=== PATIENT | male | born 1980 | race Caucasian/White ===

== ENCOUNTER 2019-05-30 20:06 | Emergency (ER) | payer SELFPAY ==
[~2019-05-30] VITALS: Ht 182.9 cm; Wt 84.1 kg
[~2019-05-30 20:06] MED LIST: FOLI-17 PO; GABA600T7 PO; MULT-750 PO; NICO-487 TD; THIA100T67 PO; TRAZ50TA66 PO; VENL150C PO; VENL75TA2 PO
--- NOTE | 2019-05-30 20:17 | NUR ---
PT BIB EMS REPORTS PT ETOH INTOXICATED AND "WANTS TO DETOX". STRONG ETOH ODOR. PT STATES "I DRANK A GALLON OF WHISKEY TODAY". PT REPORTS "I URINATE 25 TIMES PER DAY, I HAVE A PROBLEM WITH EATING, MY CHEST HURTS SINCE CHANDU BEEN WITHDRAWING, MY LAST DRINK WAS 9 HOURS AGO". PT CONENCTED TO MONITORING, CALL LIGHT WITHIN REACH.
--- NOTE | 2019-05-30 21:17 | NUR ---
UA REQUESTED AT THIS TIME. PT ATTEMPTING TO URINE.
[2019-05-30 21:19] LABS: BASOPHILS # (AUTO) 0.03 x10^3/uL (0-0.1); BASOPHILS % (AUTO) 1 % (0-1); EOSINOPHILS # (AUTO) 0.04 x10^3/uL (0-0.4); EOSINOPHILS % (AUTO) 1 % (1-7); LYMPHOCYTES # (AUTO) 2.07 x10^3/uL (1-3.4); LYMPHOCYTES % (AUTO) 33 % (22-44); MD NO; MEAN CORPUSCULAR HEMOGLOBIN 30.2 pg (27.5-34.5); MEAN CORPUSCULAR HGB CONC 33.5 g/dL (33.2-36.2); MEAN CORPUSCULAR VOLUME 90.3 fL (81-97); MEAN PLATELET VOLUME 7.7 fL (7.4-10.4); MONOCYTES # (AUTO) 1.04 x10^3/uL (0.2-0.8); MONOCYTES % (AUTO) 17 % (2-9); NEUTROPHILS # (AUTO) 3.04 x10^3/uL (1.8-6.8); NEUTROPHILS % (AUTO) 49 % (42-75); PLATELET COUNT 274 x10^3/uL (130-400); RED BLOOD COUNT 4.46 x10^6/uL (4.38-5.82); RED CELL DISTRIBUTION WIDTH 15.2 % (9.4-14.8)
[2019-05-30 21:23] LABS: ALANINE AMINOTRANSFERASE 27 U/L (12-78); ALBUMIN 3.9 g/dL (3.4-5.0); ANION GAP 7 mmol/L (5-15); CALCIUM 8.1 mg/dL (8.5-10.1); CHLORIDE 109 mmol/L (98-107); CREATININE 0.74 mg/dL (0.7-1.3)
[2019-05-30 21:28] LABS: ALKALINE PHOSPHATASE 88 U/L (45-117); BILIRUBIN,TOTAL 0.5 mg/dL (0.2-1.0); TOTAL PROTEIN 7.2 g/dL (6.4-8.2)
--- NOTE | 2019-05-30 21:46 | NUR ---
PT AMBULATED WITH STEADY GAIT TO BR TO PROVIDE UA.
[2019-05-30 22:08] VITALS: BP 113/77
[2019-05-30 22:11] LABS: AMPHETAMINE SCREEN, URINE Negative (Negative); BARBITURATE SCREEN, URINE Negative (Negative); BENZODIAZEPINE SCREEN, URINE Positive (Negative); CANNABINOID SCREEN, URINE Negative (Negative); COCAINE SCREEN, URINE Negative (Negative); METHADONE SCREEN, URINE Negative (Negative); OPIATE SCREEN, URINE Negative (Negative)
== END 2019-05-30 22:11 | disposition home or self-care (01) ==
LOC: ED 22:09
DX: F10.220 Alcohol dependence with intoxication, uncomplicated (principal)
CPT/HCPCS: 36415; 80053; 80307; 83735; 85025; 99283

== ENCOUNTER 2019-06-28 22:11 | Emergency (ER) | payer SELFPAY ==
[~2019-06-28] VITALS: Ht 182.9 cm; Wt 86.0 kg
--- NOTE | 2019-06-28 22:24 | NUR ---
THIS IS A 38 YO MALE BIB [facility] TO DETOX, DETOX CENTER WAS [facility]. PATIENT STATES LAST DRINK WAS 8 HOURS AGO AND DRANK A PINT OF VODKA. PER DARSHANA, LOIS HAS BEEN OFF PSYCH MEDS FOR THE PAST FEW MONTHS. PATIENT HAS HX OF DEPRESSION AND ETOH ABUSE. PATIENT CONFUSED ABOUT WHERE HE IS, STATES [place]. PATIENT ORIENTEDTO PERSON AND DATE OF , AND EVENT LEADING TO WHY HE IS HERE. ALL MONITORING IN PLACE, NSR ON MONITOR. CALL LIGHT IN REACH. PATIENT STATES HE HAS THOUGHTS OF HURTING HIMSELF, NO PLAN IN PLACE, PATIENT SCORED "[facility]" ON [place] SUICIDE SCALE. SITTER WITHIN VIEWING DISTANCE OF PATIENT, NO SITTER REQUIRED AT THIS TIME
--- NOTE | 2019-06-28 22:31 | NUR ---
PATIENT HAS 20G PIV PLACED ON LEFT WRIST WITH TODAYS DATE 06/28/19 WRITTEN ON IT, PATIENT UNSURE OF WHERE IT WAS PLACED
--- NOTE | 2019-06-28 23:01 | NUR ---
ERP TO BEDSIDE
[2019-06-28] MEDS ORDERED: DULO30CA2 PO (23:03)
[2019-06-28] MEDS ORDERED: BUPR300T49 PO (23:03)
[2019-06-28] MEDS ORDERED: TRAZ150T62 PO (23:04)
[2019-06-28 23:57] VITALS: BP 108/70
--- NOTE | 2019-06-28 23:58 | NUR ---
Patient/Caregiver given discharge instructions and they have confirmed that they understand the instructions. Patient ambulatory with steady gait.
--- NOTE | 2019-06-28 23:59 | NUR ---
PATIENT SWEARING AT THIS NURSE ABOUT BEING DISCHARGED. PATIENT GIVEN TAXI VOUCHER BACK TO DETENTION, PATIENT STATES THIS IS WHERE HE STAYS. SECURITY CALLED TO ESCORT PATIENT OUT TO DISCHARGE
== END 2019-06-28 23:59 | disposition home or self-care (01) ==
LOC: ED 23:00
DX: F10.129 Alcohol abuse with intoxication, unspecified (principal); F17.200 Nicotine dependence, unspecified, uncomplicated; Y90.0 Blood alcohol level of less than 20 mg/100 ml
CPT/HCPCS: 99283

== ENCOUNTER 2019-09-01 19:17 | Emergency (ER) | payer MEDICAID ==
[~2019-09-01] VITALS: Ht 182.9 cm; Wt 84.0 kg
[~2019-09-01 19:17] MED LIST changes: +BUPR300T49 PO; +DULO30CA2 PO; +TRAZ150T62 PO
[2019-09-01 19:20] VITALS: BP 130/84
== END 2019-09-01 19:39 | disposition left against medical advice (07) ==
LOC: ED 19:20
DX: F10.129 Alcohol abuse with intoxication, unspecified (principal)
CPT/HCPCS: 99283

== ENCOUNTER 2019-09-06 14:54 | Emergency (ER) | payer MEDICAID ==
[~2019-09-06] VITALS: Ht 185.4 cm; Wt 85.0 kg
[2019-09-06 14:57] VITALS: BP 108/61
--- NOTE | 2019-09-06 15:05 | NUR ---
THIS IS A 39 YO M BIB EMS W/ C/O ALCOHOL INTOXICATION. EMS REPORTS PT WAS UNCONCIOUS NEAR [place].RESERVATION PROPERTY. PT ADMITS DRINKING 2 PINTS OF VODKA TODAY. PT RESP EVEN AND UNLABORED, NADN. CONNECTED TO MONITORING. PROVIDED URINAL. CALL LIGHT IN REACH, SIDE RAILS UPX2. AWAITING ED EVAL.
--- NOTE | 2019-09-06 15:09 | NUR ---
SUHAIL HINDS IN ROOM FOR ED EVAL.
[2019-09-06] MEDS ORDERED: LORazepam 1MG TABLET ONE (15:20)
--- NOTE | 2019-09-06 15:23 | NUR ---
PT MEDICATED PER EMAR. REFUSED ZOFRAN, REPORTS NO NAUSEA AT THIS TIME.
[2019-09-06] MEDS ORDERED: ONDANSETRON ODT 4 MG PO ONE (15:30)
[2019-09-06] MEDS ORDERED: LORazepam 1MG TABLET PO ONE (15:30)
== END 2019-09-06 16:01 | disposition left against medical advice (07) ==
LOC: ED 15:25
DX: F10.10 Alcohol abuse, uncomplicated (principal); F41.9 Anxiety disorder, unspecified; Y90.9 Presence of alcohol in blood, level not specified
CPT/HCPCS: 99283

== ENCOUNTER 2019-09-07 01:16 | Emergency (ER) | payer MEDICAID ==
[~2019-09-07] VITALS: Ht 177.8 cm; Wt 90.0 kg
[2019-09-07 01:20] VITALS: BP 116/85
--- NOTE | 2019-09-07 01:25 | NUR ---
BIBA FOR ETOH, LAST DRINK 8 HOURS AGO, DRINKS 10 24OZ BEERS DAILY. EMS FOUND LICE BUGS ON PT, PT TAKEN TO SHOWER FOR DECON.
== END 2019-09-07 01:53 | disposition home or self-care (01) ==
LOC: ED 01:46
DX: F10.120 Alcohol abuse with intoxication, uncomplicated (principal); B85.0 Pediculosis due to Pediculus humanus capitis; B85.1 Pediculosis due to Pediculus humanus corporis; Z72.9 Problem related to lifestyle, unspecified; Y90.9 Presence of alcohol in blood, level not specified
CPT/HCPCS: 99283

== ENCOUNTER 2019-09-08 15:55 | Emergency (ER) | payer MEDICAID ==
[~2019-09-08] VITALS: Ht 177.8 cm; Wt 90.0 kg
[2019-09-08 16:05] VITALS: BP 118/76
--- NOTE | 2019-09-08 16:17 | NUR ---
FLOAT RN: PT FOUND UP FROM BED. PT UNSTEADY ON FEET. PT ASSISTED BACK TO BED CALL LIGHT PROVIDED. PT ENCOURAGED TO CALL BEFORE ATTEMPTING TO AMBULATE.
--- NOTE | 2019-09-08 16:32 | NUR ---
PT NOT IN GURNEY. VITALS MONITORS HAVE BEEN REMOVED AND ARE LAYING ON GURNEY. THIS RN HAS WALKED AROUND ER, NO SIGHT OF PT, USED CAR SALESPERSON AWARE.
== END 2019-09-08 16:48 | disposition left against medical advice (07) ==
LOC: ED 16:44
DX: F10.129 Alcohol abuse with intoxication, unspecified (principal); R51 Headache; Z53.21 Procedure and treatment not carried out due to patient leaving prior to being seen by health care provider

== ENCOUNTER 2019-09-22 17:29 | Emergency (ER) | payer MEDICAID ==
[~2019-09-22] VITALS: Ht 182.9 cm; Wt 86.0 kg
[2019-09-22 17:40] VITALS: BP 129/83
== END 2019-09-22 18:05 | disposition left against medical advice (07) ==
LOC: ED 17:35
DX: R51 Headache (principal); Z53.21 Procedure and treatment not carried out due to patient leaving prior to being seen by health care provider

== ENCOUNTER 2019-10-31 14:55 | Emergency (ER) | payer MEDICAID ==
[~2019-10-31] VITALS: Ht 182.9 cm; Wt 86.8 kg
[2019-10-31 15:01] VITALS: BP 128/88
--- NOTE | 2019-10-31 15:30 | NUR ---
THIS IS A 39 YEAR OLD MALE WHO C/O T C/O ETOH WITHDRAWAL. PT STATES HE TYPICALLY DRINKS 1L VODKA/DAILY AND HAS A HX OF SZ WITH WITHDRAWAL. PT REPORTS LAST DRINK WAS APPROX 8-10 HOURS AGO AND STATES "I'VE ALREADY HAD A COUPLE OF SEIZURES TODAY". SPEECH SEEMS SLURRED. NO TREMORS NOTED. BED RAILS UP X 2. SPO2 MONITOR ON.
[2019-10-31] MEDS ORDERED: ONDANSETRON ODT 4 MG ONE (16:15)
--- NOTE | 2019-10-31 16:27 | NUR ---
MEDICATE PER ORDERS, MEAL PROVIDED. PT DRESSED AND LEFT GAIT SLOW AND STEADY
[2019-10-31] MEDS ORDERED: THIAMINE 100MG TABLET PO ONE (16:30)
[2019-10-31] MEDS ORDERED: ONDANSETRON ODT 4 MG PO ONE (16:30)
== END 2019-10-31 16:29 | disposition home or self-care (01) ==
LOC: ED 16:23
DX: F10.129 Alcohol abuse with intoxication, unspecified (principal); F17.200 Nicotine dependence, unspecified, uncomplicated; Y90.9 Presence of alcohol in blood, level not specified
CPT/HCPCS: 99283; Q0162

== ENCOUNTER 2019-11-02 11:41 | Emergency (ER) | payer MEDICAID ==
[~2019-11-02] VITALS: Ht 182.9 cm; Wt 86.0 kg
--- NOTE | 2019-11-02 12:31 | NUR ---
PT AMBULATED IN TO ER FOR SUICIDAL THOUGHTS, STATES HE WAS THINKING OF DRINKING TOO MUCH OR OVERDOSING ON DRUGS, STATES, "I COULD GET THEM". PT STATES HE HAS BEEN OFF HIS MEDS X3 WEEKS (WELLBUTRIN, GABAPENTIN, DULOXETINE, TRAZODONE). CURRENTLY DRINKS 1L VODKA/DAY, STATES LAST DRINK ABOUT 10 HOURS AGO. CIWA PROTOCOL IN PLACE. SITTER OUTSIDE ROOM AT ALL TIMES. RV'WD POC WITH PT, WARM BLANKET PROVIDED. ALL BELONGINGS REMOVED; BACKPACK AND BAG OF CLOTHES PLACED IN LOCKER. GARAGE DOORS DOWN IN ROOM FOR SAFETY.
[2019-11-02 13:05] LABS: BASOPHILS # (AUTO) 0.03 x10^3/uL (0-0.1); BASOPHILS % (AUTO) 1 % (0-1); EOSINOPHILS # (AUTO) 0.06 x10^3/uL (0-0.4); EOSINOPHILS % (AUTO) 1 % (1-7); LYMPHOCYTES # (AUTO) 1.82 x10^3/uL (1-3.4); LYMPHOCYTES % (AUTO) 34 % (22-44); MD NO; MEAN CORPUSCULAR HEMOGLOBIN 31.4 pg (27.5-34.5); MEAN CORPUSCULAR HGB CONC 33.7 g/dL (33.2-36.2); MEAN CORPUSCULAR VOLUME 93.1 fL (81-97); MONOCYTES # (AUTO) 0.51 x10^3/uL (0.2-0.8); MONOCYTES % (AUTO) 10 % (2-9); NEUTROPHILS # (AUTO) 2.92 x10^3/uL (1.8-6.8); NEUTROPHILS % (AUTO) 55 % (42-75); PLATELET COUNT 287 x10^3/uL (130-400); RED BLOOD COUNT 4.54 x10^6/uL (4.38-5.82); RED CELL DISTRIBUTION WIDTH 15.5 % (9.4-14.8)
[2019-11-02 13:16] LABS: ANION GAP 8 mmol/L (5-15); CALCIUM 8.4 mg/dL (8.5-10.1); CHLORIDE 104 mmol/L (98-107); SALICYLATE LEVEL 1.8 mg/dL (2.8-20.0)
[2019-11-02 13:20] LABS: ALANINE AMINOTRANSFERASE 31 U/L (12-78); ALKALINE PHOSPHATASE 76 U/L (45-117); BILIRUBIN,TOTAL 0.5 mg/dL (0.2-1.0); CREATININE 0.88 mg/dL (0.7-1.3); TOTAL PROTEIN 7.5 g/dL (6.4-8.2)
--- NOTE | 2019-11-02 14:09 | NUR ---
INFORMED PT OF NEED FOR URINE SAMPLE. WATER PROVIDED AND MEAL TRAY ORDERED.
--- NOTE | 2019-11-02 15:00 | NUR ---
PT HAD MEAL TRAY. RESTING IN [facility], NO S/S OF DISTRESS.
[2019-11-02 15:28] LABS: MICROSCOPIC NOT IND
[2019-11-02 15:33] LABS: AMPHETAMINE SCREEN, URINE Negative (Negative); BARBITURATE SCREEN, URINE Negative (Negative); BENZODIAZEPINE SCREEN, URINE Negative (Negative); CANNABINOID SCREEN, URINE Negative (Negative); COCAINE SCREEN, URINE Negative (Negative); METHADONE SCREEN, URINE Negative (Negative); OPIATE SCREEN, URINE Negative (Negative)
--- NOTE | 2019-11-02 15:44 | NUR ---
PT RESTING IN GURNEY, REPOSITIONS SELF. NO S/S OF DISTRESS. SITTER REMAINS OUTSIDE ROOM.
--- NOTE | 2019-11-02 17:39 | NUR ---
PT AMBULATED TO BR WITHOUT DIFFICULTY.
--- NOTE | 2019-11-02 17:45 | NUR ---
PT C/O "SEEING THINGS", REQUESTS SOMETHING FOR WITHDRAWAL. TREMOR NOTED WITH ARMS EXTENDED. BREATHALYZER 0.252. WILL NOTIFY ERP.
[2019-11-02] MEDS ORDERED: CHLORDIAZEPOXIDE 25 MG CAPSULE ONE ×2 (17:59→21:20)
[2019-11-02] MEDS: CHLORDIAZEPOXIDE 25 MG CAPSULE PO PRN (18:01)
--- NOTE | 2019-11-02 18:10 | NUR ---
PT MEDICATED WITH 25MG LIBRIUM. STATES, "THAT WON'T DO ANYTHING FOR ME, I NEED AT LEAST 50MG". SPO2 85% ON RA, PLACED ON 2L O2 NC. WATER PROVIDED TO PT. DINNER TRAY ORDERED.
--- NOTE | 2019-11-02 19:03 | NUR ---
PT SLEEPING AFTER LIBRIUM. NO SIGNS OF DISTRESS. BREATHING WNL. O2 IN PLACE 2L NC. SITTER OUTSIDE ROOM.
--- NOTE | 2019-11-02 20:08 | NUR ---
PT CONTINUES TO REST IN [facility], BREATHING WNL, O2 IN PLACE. SITTER OUTSIDE ROOM.
--- NOTE | 2019-11-02 20:27 | NUR ---
PT'S BLOOD WAS DRAWN. HE AWOKE AND ASKED FOR ANOTHER LIBRIUM, THEN WENT BACK TO SLEEP. RESTING, NO SIGNS OF DISTRESS AT THIS TIME.
--- NOTE | 2019-11-02 21:24 | NUR ---
TASK RN: PT MEDICATED PER JUL. PROVIDED ADDITIONAL WATER. CIWA COMPLETED.
--- NOTE | 2019-11-02 21:24 | NUR ---
PT REQUESTED LIBRIUM AGAIN. MEDICATED BY ANOTHER RN PER ORDERS.
[2019-11-02] MEDS ORDERED: CHLORDIAZEPOXIDE 25 MG CAPSULE PO PRN (21:30)
--- NOTE | 2019-11-02 22:07 | NUR ---
REPORTED TO CHAD RONQUILLO.
--- NOTE | 2019-11-03 00:25 | NUR ---
PT RESTING ON GURNEY WITH EYES CLOSED, RESPIRATIONS EVEN AND NONLABORED. SITTER IN HALLWAY WITHIN LINE OF SIGHT.
[2019-11-03 02:09] VITALS: BP 98/46
[2019-11-03] MEDS ORDERED: CHLORDIAZEPOXIDE 25 MG CAPSULE ONE (02:11)
[2019-11-03] MEDS: CHLORDIAZEPOXIDE 25 MG CAPSULE PO PRN (02:14)
[2019-11-03] MEDS ORDERED: THIAMINE 100MG TABLET PO ONE (02:30)
[2019-11-03] MEDS ORDERED: DIAZEPAM 5 MG TABLET PO ONE (02:30)
--- NOTE | 2019-11-03 02:30 | NUR ---
pt resting at this time. tolerating juice and water. patient is sober and still expressing SI. telepysch at bedside. patient requesting to be inpatient pysch. he is endorsing anxiety, and feeling ill due to "coming down from alcohol". VSS, NAD. patient given PO medications, tolerated it well
[2019-11-03] MEDS ORDERED: DIAZEPAM 5 MG TABLET ONE (03:18)
[2019-11-03] MEDS ORDERED: THIAMINE 100MG TABLET ONE (03:18)
[2019-11-03] MEDS ORDERED: CHLORDIAZEPOXIDE 25 MG CAPSULE PO SCH (04:00)
--- NOTE | 2019-11-03 05:01 | NUR ---
patient sleeping at this time, resting comfortably. RN will continue to monitor
--- NOTE | 2019-11-03 05:06 | NUR ---
Patient accepted by Dr. Chakraborty at [facility]. Will arrange [facility] transport and call MTM at this time.
--- NOTE | 2019-11-03 05:16 | NUR ---
NEMOM called and spoke with [facility] who will arrange transport.
--- NOTE | 2019-11-03 05:21 | NUR ---
Spoke with Abundio at [facility] and they will send a unit JONATHAN. ETA [id number].
--- NOTE | 2019-11-03 06:13 | NUR ---
report given to SHIMA GILLILAND gave patients belongings (one bag and one bookbag) to EMS. patient remained calm and cooperative the entire time
[2019-11-04] MEDS ORDERED: CHLORDIAZEPOXIDE 25 MG CAPSULE PO SCH (04:00)
== END 2019-11-03 06:16 ==
LOC: ED 14:32
DX: R45.851 Suicidal ideations (principal); F10.129 Alcohol abuse with intoxication, unspecified; F17.200 Nicotine dependence, unspecified, uncomplicated; Y90.9 Presence of alcohol in blood, level not specified
CPT/HCPCS: 36415; 80053; 80307; 81003; 85025; 99285

== ENCOUNTER 2019-11-20 18:46 | Emergency (ER) | payer MEDICAID ==
[~2019-11-20] VITALS: Ht 182.9 cm; Wt 90.3 kg
[2019-11-20 18:48] VITALS: BP 105/72
--- NOTE | 2019-11-20 19:04 | NUR ---
PT SMELLS OF ALCOHOL, SPEECH SLURRED. 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 PT DENIES ANY PHYSICAL COMPLAINTS BESIDES A MILD FEELING OF NAUSEA. STATES "I JUST WANT TO FEEL NORMAL." ATTACHED TO MONITORS, WARM BLANKETS PROVIDED, CALL LIGHT IN REACH.
== END 2019-11-20 20:12 | disposition home or self-care (01) ==
LOC: ED 19:45
DX: F10.120 Alcohol abuse with intoxication, uncomplicated (principal); F17.210 Nicotine dependence, cigarettes, uncomplicated; Z72.9 Problem related to lifestyle, unspecified; Y90.9 Presence of alcohol in blood, level not specified
CPT/HCPCS: 99281; 99406

== ENCOUNTER 2019-11-25 18:42 | Emergency (ER) | payer MEDICAID ==
[~2019-11-25] VITALS: Ht 182.9 cm; Wt 86.6 kg
--- NOTE | 2019-11-25 19:05 | NUR ---
PT PRESENTS WITH C/O "DETOXING FROM ALCOHOL AND PSYCH MEDS." PT REPORTS HE LOST HIS BACKPACK THAT HAD HIS MEDS IN IT APPROX 10 DAYS AGO AND HASN'T TAKEN MEDS SINCE, BUT FOUND BACKPACK TODAY WITH MEDS IN IT. PT STATES HIS LAST DRINK WAS THIS MORNING BUT HE FEELS HE IS DETOXING. PT AAOX4, CALM AND COOPEARTIVE, DENIES SI/HI
[2019-11-25] MEDS ORDERED: LORazepam 2 MG/ML, 1ML ONE (19:26)
[2019-11-25] MEDS ORDERED: SODIUM CHLORIDE FLUSH 10ML SYR IVF ONE (19:30)
[2019-11-25] MEDS ORDERED: LORazepam 2 MG/ML, 1ML IVPush ONE (19:30)
[2019-11-25] MEDS ORDERED: SODIUM CHLORIDE 0.9% 1,000ML IVBOLUS ONE (19:30)
[2019-11-25 19:42] LABS: BASOPHILS # (AUTO) 0.03 x10^3/uL (0-0.1); BASOPHILS % (AUTO) 1 % (0-1); EOSINOPHILS # (AUTO) 0.07 x10^3/uL (0-0.4); EOSINOPHILS % (AUTO) 1 % (1-7); LYMPHOCYTES # (AUTO) 2.89 x10^3/uL (1-3.4); LYMPHOCYTES % (AUTO) 41 % (22-44); MD NO; MEAN CORPUSCULAR HEMOGLOBIN 31.1 pg (27.5-34.5); MEAN CORPUSCULAR HGB CONC 33.8 g/dL (33.2-36.2); MEAN PLATELET VOLUME 8.3 fL (7.4-10.4); MONOCYTES # (AUTO) 0.71 x10^3/uL (0.2-0.8); MONOCYTES % (AUTO) 10 % (2-9); NEUTROPHILS # (AUTO) 3.35 x10^3/uL (1.8-6.8); NEUTROPHILS % (AUTO) 48 % (42-75); PLATELET COUNT 296 x10^3/uL (130-400); RED CELL DISTRIBUTION WIDTH 14.6 % (9.4-14.8)
[2019-11-25 19:45] LABS: ALANINE AMINOTRANSFERASE 27 U/L (12-78); ALBUMIN 3.5 g/dL (3.4-5.0); ANION GAP 5 mmol/L (5-15); CALCIUM 8.5 mg/dL (8.5-10.1); CHLORIDE 110 mmol/L (98-107); CREATININE 0.99 mg/dL (0.7-1.3)
[2019-11-25 19:47] LABS: ALKALINE PHOSPHATASE 60 U/L (45-117); BILIRUBIN,TOTAL 0.3 mg/dL (0.2-1.0); TOTAL PROTEIN 6.3 g/dL (6.4-8.2)
[2019-11-25 20:18] VITALS: BP 106/58
--- NOTE | 2019-11-25 20:18 | NUR ---
Pt left without DC papers, pt states he does not want to wait and is ready to go now. PIV removed and pt walked off unit.
== END 2019-11-25 20:20 | disposition home or self-care (01) ==
LOC: ED 20:15
DX: F10.220 Alcohol dependence with intoxication, uncomplicated (principal); R11.2 Nausea with vomiting, unspecified; R00.0 Tachycardia, unspecified; Z72.9 Problem related to lifestyle, unspecified; Y90.9 Presence of alcohol in blood, level not specified
CPT/HCPCS: 36415; 80053; 80307; 83690; 85025; 93005; 96361; 96374; 99284; J2060; J7030

== ENCOUNTER 2019-12-02 06:49 | Emergency (ER) | payer MEDICAID ==
[~2019-12-02] VITALS: Ht 182.9 cm; Wt 90.0 kg
[2019-12-02 06:56] VITALS: BP 110/69
--- NOTE | 2019-12-02 07:02 | NUR ---
report from Fanny
[2019-12-02 07:31] LABS: BASOPHILS # (AUTO) 0.05 x10^3/uL (0-0.1); BASOPHILS % (AUTO) 1 % (0-1); EOSINOPHILS # (AUTO) 0.13 x10^3/uL (0-0.4); EOSINOPHILS % (AUTO) 1 % (1-7); LYMPHOCYTES # (AUTO) 2.66 x10^3/uL (1-3.4); LYMPHOCYTES % (AUTO) 27 % (22-44); MD NO; MEAN CORPUSCULAR HEMOGLOBIN 31.1 pg (27.5-34.5); MEAN CORPUSCULAR HGB CONC 33.3 g/dL (33.2-36.2); MEAN CORPUSCULAR VOLUME 93.3 fL (81-97); MEAN PLATELET VOLUME 7.6 fL (7.4-10.4); MONOCYTES # (AUTO) 0.81 x10^3/uL (0.2-0.8); MONOCYTES % (AUTO) 8 % (2-9); NEUTROPHILS # (AUTO) 6.14 x10^3/uL (1.8-6.8); NEUTROPHILS % (AUTO) 63 % (42-75); PLATELET COUNT 271 x10^3/uL (130-400); RED BLOOD COUNT 4.51 x10^6/uL (4.38-5.82); RED CELL DISTRIBUTION WIDTH 14.9 % (9.4-14.8)
--- NOTE | 2019-12-02 07:34 | NUR ---
TELECOMMUNICATION ENGINEER: CALLED NURSING OPERATIONS FOR SITTER.
[2019-12-02 07:41] LABS: AMPHETAMINE SCREEN, URINE Negative (Negative); BARBITURATE SCREEN, URINE Negative (Negative); BENZODIAZEPINE SCREEN, URINE Positive (Negative); COCAINE SCREEN, URINE Negative (Negative); METHADONE SCREEN, URINE Negative (Negative); OPIATE SCREEN, URINE Negative (Negative)
[2019-12-02 07:42] LABS: CANNABINOID SCREEN, URINE Negative (Negative)
[2019-12-02 07:44] LABS: ALANINE AMINOTRANSFERASE 31 U/L (12-78); ALBUMIN 3.5 g/dL (3.4-5.0); CALCIUM 7.6 mg/dL (8.5-10.1); CREATININE 0.87 mg/dL (0.7-1.3)
[2019-12-02 08:22] LABS: ALKALINE PHOSPHATASE 71 U/L (45-117); ANION GAP 10 mmol/L (5-15); BILIRUBIN,TOTAL 0.4 mg/dL (0.2-1.0); CHLORIDE 110 mmol/L (98-107); TOTAL PROTEIN 6.4 g/dL (6.4-8.2)
--- NOTE | 2019-12-02 09:59 | NUR ---
PT RESTING, ENCOURAGED FOR UA SAMPLE. PT STILL DROWSY AND INTOXICATED
--- NOTE | 2019-12-02 13:21 | NUR ---
Pato boone in [facility] - 12/02/19 at 1322 by CHRISTINE TASK RN: PT SLEEPING IN [place] AT THIS TIME; [place].
--- NOTE | 2019-12-02 13:21 | NUR ---
TASK RN: PT SLEEPING IN [facility] AT THIS TIME;
--- NOTE | 2019-12-02 14:04 | NUR ---
PT DEMANDING TO LEAVE. BREATHALYZER .208. FLAVOR ROOM WORKER TO COME SEE
--- NOTE | 2019-12-02 14:44 | NUR ---
SENIOR CLIENT ADVISOR AT BEDSIDE. ENCOURAGED PT TO DRINK FLUIDS TO SOBER UP.
--- NOTE | 2019-12-02 16:31 | NUR ---
PT HAS STEADY GAIT WHEN WALKING. AGREES FOR DC
== END 2019-12-02 17:05 ==
LOC: ED 08:25
DX: F10.220 Alcohol dependence with intoxication, uncomplicated (principal); R45.851 Suicidal ideations; F32.9 Major depressive disorder, single episode, unspecified; Y90.0 Blood alcohol level of less than 20 mg/100 ml
CPT/HCPCS: 36415; 80053; 80307; 85025; 99283